=== PATIENT | male | born 1965 | race Two or more races ===

== ENCOUNTER 2021-10-08 15:32 | Emergency (ER) | payer MEDICAID, OTHER ==
[~2021-10-08] VITALS: Ht 188 cm; Wt 92.8 kg
[2021-10-08 15:37] VITALS: BP 155/92
[2021-10-08 16:51] LABS: Basophils # (auto) 0.1 10 ^3/uL (0-0.2); Basophils % (auto) 0.7 % (0.0-2.0); Eosinophils # (auto) 0.1 10 ^3/uL (0-0.8); Eosinophils % (auto) 0.9 % (0.0-7.0); Hematocrit 45.8 % (41.0-53.0); Lymphocytes % (auto) 24.7 % (10.0-50.0); Mean Corpuscular Hemoglobin 27.6 pg (28.0-32.0); Mean Corpuscular Hgb Conc. 32.7 g/dL (32.0-36.0); Mean Corpuscular Volume 84.3 fL (80.0-100.0); Monocytes # (auto) 0.7 10 ^3/uL (0-1.3); Monocytes % (auto) 5.8 % (0.0-12.0); Neutrophils # (auto) 8.4 10 ^3/uL (1.6-8.6); Neutrophils % (auto) 67.9 % (37.0-80.0); Red Blood Cells 5.44 10^6/uL (4.5-5.90); Red Cell Distribution Width 13.6 % (11.8-14.3); White Blood Cell 12.3 10^3/uL (4.4-10.8)
[2021-10-08 17:12] LABS: Albumin 2.8 g/dL (3.4-5.0); BUN/Creatinine Ratio 10.3; Calcium 8.8 mg/dL (8.5-10.1); Potassium 4.4 mmol/L (3.5-5.1)
[2021-10-08 17:15] LABS: Bilirubin, Total 0.3 mg/dL (0.2-1.0)
[2021-10-08] MEDS ORDERED: IOHEXOL 300 MG/ML 100ML BOTTLE IJ ONE (18:35)
[2021-10-08] MEDS ORDERED: cefTRIAXone SOD 1,000 MG VL IM ONE (20:15)
[2021-10-08] MEDS ORDERED: DOXYCYCLINE 100 MG TAB/CAP PO ONE (20:15)
[2021-10-08] MEDS ORDERED: DOXY-332 PO (20:45)
== END 2021-10-08 21:59 | disposition home or self-care (01) ==
LOC: ER 15:32
DX: K62.89 Other specified diseases of anus and rectum (principal); K29.70 Gastritis, unspecified, without bleeding; L03.311 Cellulitis of abdominal wall; E11.9 Type 2 diabetes mellitus without complications; Z88.8 Allergy status to other drugs, medicaments and biological substances
CPT/HCPCS: 36415; 71045; 74177; 80053; 84484; 85025; 93005; 96372; 99285; J0696; Q9967